=== PATIENT | female | born 1955 | race African-American/Black ===

== ENCOUNTER 2018-02-11 11:57 | Emergency (ER) | payer MEDICAID ==
[~2018-02-11] VITALS: Ht 152.4 cm; Wt 72.0 kg
[2018-02-11 13:41] VITALS: BP 203/98
== END 2018-02-11 19:30 | disposition left against medical advice (07) ==
LOC: ER 12:57
DX: R21 Rash and other nonspecific skin eruption (principal); M25.561 Pain in right knee
CPT/HCPCS: 99281

== ENCOUNTER 2019-01-21 11:01 | Inpatient (IN) | payer MEDICAID ==
[~2019-01-21] VITALS: Ht 152.4 cm; Wt 70.3 kg
[2019-01-21] MEDS ORDERED: SODIUM CHLORIDE 0.9% 1,000 ML IV ONE (16:05)
[2019-01-21] MEDS ORDERED: FAMOTIDINE 20MG/2ML VIAL IV STA (16:05)
[2019-01-21] MEDS ORDERED: KETOROLAC 30MG/ML VIAL IV STA (16:05)
[2019-01-21] MEDS ORDERED: MORPHINE SULFATE 4 MG/ML CPJ (NOT FOR IM USE) IV STA (16:05)
[2019-01-21 16:21] LABS: BASOPHILS % 0.6 % (0.0-2.0); EOSINOPHILS % 0.1 % (0.0-5.0); HEMOGLOBIN. 17.1 g/dL (12.0-16.0); LYMPHOCYTES % 7.3 % (20.0-50.0); MEAN CORPUSCULAR HEMOGLOBIN 31.8 pg (28.0-32.0); MEAN CORPUSCULAR VOLUME 92.9 fL (81.0-99.0); MEAN PLATELET VOLUME 8.1 fl (7.4-10.4); MONOCYTES % 7.1 % (2.0-8.0); NEUTROPHILS % 84.9 % (40.0-76.0); PLATELET 418 x1000/uL (130-400); RED BLOOD CELL COUNT 5.38 mill/uL (4.2-5.4); RED CELL DISTRIBUTION WIDTH 13.9 % (11.6-14.6)
[2019-01-21 16:24] LABS: CHLORIDE 95 mEq/L (98-107)
[2019-01-21 16:26] LABS: PROTHROMBIN TIME 10.5 sec (9.1-11.1)
[2019-01-21 16:28] LABS: ETHANOL BLOOD < 10 mg/dL
[2019-01-21] MEDS ORDERED: ENALAPRIL 2.5MG/2ML VIAL 2ML IV ONE (18:30)
[2019-01-21] MEDS ORDERED: ONDANSETRON HCL 4MG/2ML INJ IV PRN (19:30)
[2019-01-21] MEDS ORDERED: IPRATROPIUM/ALBUTEROL 0.5-3(2.5)MG/3ML NEB INH PRN (19:30)
[2019-01-21] MEDS ORDERED: MAGNESIUM/ALUMINUM HYDROXIDE/SIMETHICONE 30ML UDC PO PRN (19:30)
[2019-01-21] MEDS ORDERED: DOCUSATE SODIUM 100MG CAPSULE PO PRN (19:30)
[2019-01-21] MEDS ORDERED: CLONIDINE 0.1MG TABLET PO PRN (19:30)
[2019-01-21] MEDS ORDERED: ACETAMINOPHEN 325MG TABLET PO PRN (19:30)
[2019-01-21 22:19] LABS: CREATINE KINASE 55 IU/L (26-192)
[2019-01-22] VITALS (8 sets, daily range): BP systolic 118–154; BP diastolic 52–78
[2019-01-22 02:11] LABS: CLARITY URINE CLEAR (CLEAR); COLOR URINE YELLOW (YELLOW); KETONES URINE 1+ (NEGATIVE); LEUKOCYTE ESTERASE URINE NEGATIVE (NEGATIVE); NITRITE URINE NEGATIVE (NEGATIVE); OCCULT BLOOD URINE 2+ (NEGATIVE); PROTEIN URINE NEGATIVE (NEGATIVE); SPECIFIC GRAVITY URINE 1.009 (1.005-1.030); UROBILINOGEN URINE 0.2 E.U./dL (0.2-1.0)
[2019-01-22 02:21] LABS: *BARBITURATES SCREEN URINE NEGATIVE (NEGATIVE)
[2019-01-22 02:22] LABS: *AMPHETAMINES SCREEN URINE NEGATIVE (NEGATIVE); *BENZODIAZEPINES SCREEN URINE NEGATIVE (NEGATIVE); *COCAINE SCREEN URINE NEGATIVE (NEGATIVE); METHADONE URINE SCREEN NEGATIVE (NEGATIVE); OPIATES URINE SCREEN PRESUMTIVE POSITIVE (NEGATIVE)
[2019-01-22 02:23] LABS: CANNABINOID URINE SCREEN PRESUMTIVE POSITIVE (NEGATIVE); PHENCYCLIDINE URINE SCREEN NEGATIVE (NEGATIVE)
[2019-01-22] MEDS ORDERED: VANCOMYCIN 750 MG PREMIX 150 ML IV SCH (06:00)
[2019-01-22] MEDS: PIPERACILLIN/TAZ 3.375G PREMIX 50 ML IV SCH ×2 (06:49→12:50)
[2019-01-22 07:54] LABS: BASOPHILS % 0.3 % (0.0-2.0); EOSINOPHILS % 0.2 % (0.0-5.0); HEMATOCRIT. 42.3 % (36.0-48.0); HEMOGLOBIN. 14.3 g/dL (12.0-16.0); LYMPHOCYTES % 9.3 % (20.0-50.0); MEAN CORPUSCULAR HEMOGLOBIN 31.5 pg (28.0-32.0); MEAN CORPUSCULAR VOLUME 92.9 fL (81.0-99.0); MEAN PLATELET VOLUME 8.5 fl (7.4-10.4); MONOCYTES % 7.9 % (2.0-8.0); NEUTROPHILS % 82.3 % (40.0-76.0); PLATELET 346 x1000/uL (130-400); RED BLOOD CELL COUNT 4.55 mill/uL (4.2-5.4); RED CELL DISTRIBUTION WIDTH 13.4 % (11.6-14.6)
[2019-01-22] MEDS ORDERED: ASPI-1159 PO (08:03)
[2019-01-22 08:04] LABS: CHLORIDE 101 mEq/L (98-107)
[2019-01-22 08:13] LABS: PHOSPHORUS 3.5 mg/dL (2.5-4.9)
[2019-01-22 08:16] LABS: CREATINE KINASE 42 IU/L (26-192)
[2019-01-22] MEDS: PANTOPRAZOLE SODIUM 40 MG/VIAL IV SCH (10:28)
[2019-01-22] MEDS ORDERED: POTASSIUM CHLORIDE 20MEQ TABLET SR PO NR (13:00)
[2019-01-22] MEDS ORDERED: SODIUM CHLORIDE 0.45% 1,000 ML IV SCH (13:30)
[2019-01-22 14:47] LABS: CREATINE KINASE 40 IU/L (26-192)
[2019-01-23] VITALS: BP 141/64
[2019-01-23 04:00] VITALS: BP 165/75
[2019-01-23 08:00] VITALS: BP 132/72
[2019-01-23 08:06] LABS: BASOPHILS % 0.7 % (0.0-2.0); EOSINOPHILS % 0.4 % (0.0-5.0); HEMATOCRIT. 46.4 % (36.0-48.0); HEMOGLOBIN. 15.5 g/dL (12.0-16.0); LYMPHOCYTES % 15.1 % (20.0-50.0); MEAN CORPUSCULAR HEMOGLOBIN 31.9 pg (28.0-32.0); MEAN CORPUSCULAR VOLUME 95.6 fL (81.0-99.0); MONOCYTES % 8.3 % (2.0-8.0); NEUTROPHILS % 75.5 % (40.0-76.0); RED BLOOD CELL COUNT 4.86 mill/uL (4.2-5.4); RED CELL DISTRIBUTION WIDTH 13.6 % (11.6-14.6)
[2019-01-23 08:38] LABS: MEAN PLATELET VOLUME 8.7 fl (7.4-10.4); PLATELET 285 x1000/uL (130-400)
[2019-01-23 09:06] LABS: CHLORIDE 102 mEq/L (98-107)
[2019-01-23] MEDS: PANTOPRAZOLE SODIUM 40 MG/VIAL IV SCH (09:38)
[2019-01-23 12:00] VITALS: BP 160/69
[2019-01-23 14:32] VITALS: BP 158/70
== END 2019-01-23 16:55 | disposition home or self-care (01) | DRG 249 ==
LOC: ER 11:01 → 5WST 19:14 → ENRESERV 01-22 02:26 → 5WST 01-22 04:52
PROVIDERS: ADMIT Family Medicine Adult Medicine; ATTEND Family Medicine Adult Medicine
DX: A08.4 Viral intestinal infection, unspecified (principal); E66.9 Obesity, unspecified; E86.0 Dehydration; F41.9 Anxiety disorder, unspecified; I10 Essential (primary) hypertension; K52.9 Noninfective gastroenteritis and colitis, unspecified; M17.11 Unilateral primary osteoarthritis, right knee; F12.90 Cannabis use, unspecified, uncomplicated; I16.0 Hypertensive urgency; Z80.8 Family history of malignant neoplasm of other organs or systems; Z98.891 History of uterine scar from previous surgery; Z71.3 Dietary counseling and surveillance; Z68.30 Body mass index [BMI] 30.0-30.9, adult
CPT/HCPCS: 36415; 72040; 73562; 74022; 74176; 76770; 80048; 80076; 80305; 80320; 82140; 82550; 83735; 84100; 84145; 84484; 84550; 85651; 86140; 93005; 93970; 96374; 96375; 99285; C9113; J1885; J2270; J2405; J2543; J3370; J3490; J7030; J7050; G0480